=== PATIENT | female | born 1950 | race Caucasian/White ===

== ENCOUNTER 2019-03-20 11:30 | Outpatient (RCR) | payer MEDICARE, OTHER, SELFPAY | END 2019-03-20 23:59 | LOC: DC 11:30 | PROVIDERS: Family Provider Internal Medicine; PCP Internal Medicine; Visit Provider Student in an Organized Health Care Education/Training Program | DX: Z71.3 Dietary counseling and surveillance (principal); I12.9 Hypertensive chronic kidney disease with stage 1 through stage 4 chronic kidney disease, or unspecified chronic kidney disease; E11.22 Type 2 diabetes mellitus with diabetic chronic kidney disease; N18.3 Chronic kidney disease, stage 3 (moderate); E78.5 Hyperlipidemia, unspecified | CPT/HCPCS: 97802; G0108 ==

== ENCOUNTER 2019-04-08 11:00 | Outpatient (RCR) | payer MEDICARE, OTHER, SELFPAY ==
[2015-09-14 08:02] VITALS: BMI 32.8
== END 2019-04-19 23:59 ==
LOC: DC 11:00
PROVIDERS: Family Provider Internal Medicine; PCP Internal Medicine; Visit Provider Student in an Organized Health Care Education/Training Program
DX: Z71.3 Dietary counseling and surveillance (principal); I12.9 Hypertensive chronic kidney disease with stage 1 through stage 4 chronic kidney disease, or unspecified chronic kidney disease; E11.22 Type 2 diabetes mellitus with diabetic chronic kidney disease; N18.3 Chronic kidney disease, stage 3 (moderate); E78.5 Hyperlipidemia, unspecified
CPT/HCPCS: 97803; G0108

== ENCOUNTER 2019-04-29 11:26 | Outpatient (RCR) | payer MEDICARE, OTHER, SELFPAY ==
[2015-09-14 08:02] VITALS: BMI 32.8
== END 2019-05-20 23:59 ==
LOC: DC 11:26
PROVIDERS: Family Provider Internal Medicine; PCP Internal Medicine; Visit Provider Student in an Organized Health Care Education/Training Program
DX: Z71.3 Dietary counseling and surveillance (principal); I12.9 Hypertensive chronic kidney disease with stage 1 through stage 4 chronic kidney disease, or unspecified chronic kidney disease; E11.22 Type 2 diabetes mellitus with diabetic chronic kidney disease; N18.3 Chronic kidney disease, stage 3 (moderate); E78.5 Hyperlipidemia, unspecified
CPT/HCPCS: 97803

== ENCOUNTER 2019-06-10 11:13 | Outpatient (RCR) | payer SELFPAY ==
[2015-09-14 08:02] VITALS: BMI 32.8
== END 2019-06-20 23:59 ==
LOC: NS 11:13
PROVIDERS: Family Provider Internal Medicine; PCP Internal Medicine; Visit Provider Student in an Organized Health Care Education/Training Program
DX: Z71.3 Dietary counseling and surveillance (principal); I12.9 Hypertensive chronic kidney disease with stage 1 through stage 4 chronic kidney disease, or unspecified chronic kidney disease; E11.22 Type 2 diabetes mellitus with diabetic chronic kidney disease; N18.3 Chronic kidney disease, stage 3 (moderate); E78.5 Hyperlipidemia, unspecified
CPT/HCPCS: 97802

== ENCOUNTER 2019-07-10 08:18 | Outpatient (RCR) | payer SELFPAY ==
[2015-09-14 08:02] VITALS: BMI 32.8
== END 2019-07-19 23:59 ==
LOC: NS 08:18
PROVIDERS: Family Provider Internal Medicine; PCP Internal Medicine; Visit Provider Student in an Organized Health Care Education/Training Program
DX: Z71.3 Dietary counseling and surveillance (principal); I12.9 Hypertensive chronic kidney disease with stage 1 through stage 4 chronic kidney disease, or unspecified chronic kidney disease; E11.22 Type 2 diabetes mellitus with diabetic chronic kidney disease; N18.3 Chronic kidney disease, stage 3 (moderate); E78.5 Hyperlipidemia, unspecified
CPT/HCPCS: 97803

== ENCOUNTER 2019-07-24 08:49 | Outpatient (RCR) | payer SELFPAY ==
[2015-09-14 08:02] VITALS: BMI 32.8
== END 2019-08-19 23:59 ==
LOC: NS 08:49
PROVIDERS: Family Provider Internal Medicine; PCP Internal Medicine; Visit Provider Student in an Organized Health Care Education/Training Program
DX: Z71.3 Dietary counseling and surveillance (principal); I12.9 Hypertensive chronic kidney disease with stage 1 through stage 4 chronic kidney disease, or unspecified chronic kidney disease; E11.22 Type 2 diabetes mellitus with diabetic chronic kidney disease; N18.3 Chronic kidney disease, stage 3 (moderate); E78.5 Hyperlipidemia, unspecified
CPT/HCPCS: 97803

== ENCOUNTER 2019-09-10 10:48 | Outpatient (RCR) | payer SELFPAY ==
[2015-09-14 08:02] VITALS: BMI 32.8
== END 2019-09-18 23:59 ==
LOC: NS 10:48
PROVIDERS: Family Provider Internal Medicine; PCP Internal Medicine; Visit Provider Student in an Organized Health Care Education/Training Program
DX: Z71.3 Dietary counseling and surveillance (principal); I12.9 Hypertensive chronic kidney disease with stage 1 through stage 4 chronic kidney disease, or unspecified chronic kidney disease; E11.22 Type 2 diabetes mellitus with diabetic chronic kidney disease; N18.3 Chronic kidney disease, stage 3 (moderate); E78.5 Hyperlipidemia, unspecified
CPT/HCPCS: 97803

== ENCOUNTER 2019-10-01 09:47 | Outpatient (RCR) | payer SELFPAY ==
[2015-09-14 08:02] VITALS: BMI 32.8
== END 2019-10-19 23:59 ==
LOC: NS 09:47
PROVIDERS: Family Provider Internal Medicine; PCP Internal Medicine; Visit Provider Student in an Organized Health Care Education/Training Program
DX: Z71.3 Dietary counseling and surveillance (principal); I12.9 Hypertensive chronic kidney disease with stage 1 through stage 4 chronic kidney disease, or unspecified chronic kidney disease; E11.22 Type 2 diabetes mellitus with diabetic chronic kidney disease; N18.3 Chronic kidney disease, stage 3 (moderate); E78.5 Hyperlipidemia, unspecified
CPT/HCPCS: 97803

== ENCOUNTER 2019-10-22 08:39 | Outpatient (RCR) | payer SELFPAY ==
[2015-09-14 08:02] VITALS: BMI 32.8
== END 2019-11-18 23:59 ==
LOC: NS 08:39
PROVIDERS: Family Provider Internal Medicine; PCP Internal Medicine; Visit Provider Student in an Organized Health Care Education/Training Program
DX: Z71.3 Dietary counseling and surveillance (principal); I12.9 Hypertensive chronic kidney disease with stage 1 through stage 4 chronic kidney disease, or unspecified chronic kidney disease; E11.22 Type 2 diabetes mellitus with diabetic chronic kidney disease; N18.3 Chronic kidney disease, stage 3 (moderate); E78.5 Hyperlipidemia, unspecified
CPT/HCPCS: 97803

== ENCOUNTER 2019-12-10 09:00 | Outpatient (RCR) | payer SELFPAY ==
[2015-09-14 08:02] VITALS: BMI 32.8
== END 2019-12-19 23:59 ==
LOC: NS 09:00
PROVIDERS: Family Provider Internal Medicine; PCP Internal Medicine; Visit Provider Student in an Organized Health Care Education/Training Program
DX: Z71.3 Dietary counseling and surveillance (principal); I12.9 Hypertensive chronic kidney disease with stage 1 through stage 4 chronic kidney disease, or unspecified chronic kidney disease; E11.22 Type 2 diabetes mellitus with diabetic chronic kidney disease; N18.3 Chronic kidney disease, stage 3 (moderate); E78.5 Hyperlipidemia, unspecified
CPT/HCPCS: 97803

== ENCOUNTER 2020-01-01 08:51 | Outpatient (RCR) | payer SELFPAY ==
[2015-09-14 08:02] VITALS: BMI 32.8
== END 2020-01-19 23:59 ==
LOC: NS 08:51
PROVIDERS: Family Provider Internal Medicine; PCP Internal Medicine; Visit Provider Student in an Organized Health Care Education/Training Program
DX: Z71.3 Dietary counseling and surveillance (principal); I12.9 Hypertensive chronic kidney disease with stage 1 through stage 4 chronic kidney disease, or unspecified chronic kidney disease; E11.22 Type 2 diabetes mellitus with diabetic chronic kidney disease; N18.3 Chronic kidney disease, stage 3 (moderate); E78.5 Hyperlipidemia, unspecified
CPT/HCPCS: 97803

== ENCOUNTER 2020-02-04 08:30 | Outpatient (RCR) | payer SELFPAY ==
[2015-09-14 08:02] VITALS: BMI 32.8
== END 2020-02-18 23:59 ==
LOC: NS 08:30
PROVIDERS: Family Provider Internal Medicine; PCP Internal Medicine; Visit Provider Student in an Organized Health Care Education/Training Program
DX: Z71.3 Dietary counseling and surveillance (principal); I12.9 Hypertensive chronic kidney disease with stage 1 through stage 4 chronic kidney disease, or unspecified chronic kidney disease; N18.3 Chronic kidney disease, stage 3 (moderate); E11.22 Type 2 diabetes mellitus with diabetic chronic kidney disease; E78.5 Hyperlipidemia, unspecified
CPT/HCPCS: 97803

== ENCOUNTER 2020-03-18 09:00 | Outpatient (RCR) | payer SELFPAY ==
[2015-09-14 08:02] VITALS: BMI 32.8
== END 2020-03-20 23:59 ==
LOC: NS 09:00
PROVIDERS: Family Provider Internal Medicine; PCP Internal Medicine; Visit Provider Student in an Organized Health Care Education/Training Program
DX: Z71.3 Dietary counseling and surveillance (principal); I12.9 Hypertensive chronic kidney disease with stage 1 through stage 4 chronic kidney disease, or unspecified chronic kidney disease; E11.22 Type 2 diabetes mellitus with diabetic chronic kidney disease; N18.30 Chronic kidney disease, stage 3 unspecified; E78.5 Hyperlipidemia, unspecified
CPT/HCPCS: 97803

== ENCOUNTER 2020-04-14 09:00 | Outpatient (RCR) | payer SELFPAY ==
[2015-09-14 08:02] VITALS: BMI 32.8
== END 2020-04-14 23:59 | disposition home or self-care (01) ==
LOC: NS 09:00
PROVIDERS: Family Provider Internal Medicine; PCP Internal Medicine; Visit Provider Student in an Organized Health Care Education/Training Program
DX: Z71.3 Dietary counseling and surveillance (principal); I12.9 Hypertensive chronic kidney disease with stage 1 through stage 4 chronic kidney disease, or unspecified chronic kidney disease; E11.22 Type 2 diabetes mellitus with diabetic chronic kidney disease; N18.30 Chronic kidney disease, stage 3 unspecified; E78.5 Hyperlipidemia, unspecified
CPT/HCPCS: 97803